=== PATIENT | male | born 1955 | race Caucasian/White ===

== ENCOUNTER 2023-02-21 12:00 | Inpatient (IN) | payer SELFPAY ==
[2023-02-21 12:41] LABS: #Eosinphils 0.1 thou/uL (0.0-0.7); #Monocytes 0.7 thou/uL (0.11-0.59); #Neutrophils 7.4 thou/uL (1.40-6.50); %Basophils 0.4 % (0.0-1.0); %Eosinophils 0.5 % (0.0-10.0); %Lymphocytes 16.5 % (21.0-51.0); %Monocytes 7.5 % (0.0-10.0); %Neutrophils 74.7 % (42.0-75.0); Hematocrit 46.4 % (42.0-52.0); Hemoglobin 14.8 g/dL (14.0-18.0); Mean Corpuscular HGB CONC 31.9 g/dL (32.0-36.0); Mean Corpuscular Hemoglobin 28.1 pg (27.0-31.0); Mean Platelet Volume 13.1 fL (7.4-10.4); Platelet Count 131 10x3/uL (130-400); RBC Distribution Width 15.9 % (11.5-14.5); Red Blood Cell (RBC) Count 5.27 mill/uL (4.70-6.10); White Blood Cell (WBC) Count 9.9 10x3/uL (4.8-10.8)
[2023-02-21 12:57] LABS: INR-International Normal Ratio 1.9; PTT 30.4 sec (22.9-36.1)
[2023-02-21 13:09] LABS: ALT (SGPT) 32 U/L (8-55); AST (SGOT) 38 U/L (5-34); Albumin 3.5 g/dL (3.4-4.8); Alkaline Phosphatase 66 U/L (40-110); Anion Gap 19 mmol/L (10-20); BUN (Urea Nitrogen) 37 mg/dL (8.4-25.7); Bilirubin, Total 2.2 mg/dL (0.2-1.2); Calc. Creatinine Clearance 0 mL/min (70-130); Carbon Dioxide 15 mmol/L (23-31); Chloride 104 mmol/L (98-107); Estimated GFR 34; Globulin 3.5 g/dL (2.4-3.5); Glucose 96 mg/dL (80-115); Sodium 134 mmol/L (136-145)
[2023-02-21 13:12] LABS: Troponin I 0.127 ng/mL (< 0.028)
[2023-02-21 13:21] LABS: SARS-CoV-2 NAA Rapid Test Not Detected (NotDetected)
[2023-02-21] MEDS ORDERED: Aspirin Chewable 81 MG TAB ONE (13:25)
[2023-02-21] MEDS ORDERED: dilTIAZem 25 MG/5 ML VIAL ONE ×2 (13:39→14:30)
[2023-02-21] MEDS ORDERED: Enoxaparin 30 MG (0.3 mL) SYRINGE ONE (13:39)
[2023-02-21] MEDS ORDERED: Enoxaparin 100 MG (1 mL) SYRINGE ONE (13:39)
[2023-02-21] MEDS ORDERED: Aspirin 325 MG TAB ONE (13:49)
[2023-02-21] MEDS ORDERED: Acetaminophen 325 MG TAB PO PRN (14:29)
[2023-02-21] MEDS ORDERED: Furosemide 40 MG (4 mL) VIAL ONE (14:29)
[2023-02-21] MEDS ORDERED: dilTIAZem 125 MG in Sodium Chloride 0.9% 100 ML IVPB SCH (14:30)
[2023-02-21 16:09] VITALS: BMI 37.3
[2023-02-21] MEDS ORDERED: FLU VACC QS2023(65UP)/MF59C/PF 60 MCG/0.5 ML SYRINGE IM ONE (16:45)
[2023-02-21 17:14] LABS: Lactic Acid 2.5 mmol/L (0.5-2.2)
[2023-02-21 17:24] LABS: Troponin I 0.097 ng/mL (< 0.028)
[2023-02-21 17:43] LABS: Free T4 (Free Thyroxine) 1.09 ng/dL (0.70-1.48)
[2023-02-21 18:43] LABS: Bacteria/HPF None Seen HPF (None Seen); Bilirubin Negative (Negative); Blood, Urine Negative (Negative); Clarity Clear (Clear); Glucose, Urine (Dipstick) Normal (Negative); Ketone, Urine Negative (Negative); Leukocyte 75 Leu/uL (Negative); Nitrite Negative (Negative); Protein, Urine (Dipstick) 20 mg/dL (Neg-Trace); RBC/HPF 0-3 HPF (0-3); Specific Gravity, Urine 1.017 (1.002-1.036); Squamous Epithelial None Seen HPF (0-3); Urobilinogen Normal mg/dL (Less than 2)
[2023-02-21 20:29] LABS: Troponin I 0.116 ng/mL (< 0.028)
[2023-02-21] MEDS: Enoxaparin 120 MG/0.8 ML SYRINGE SC SCH (21:18)
[2023-02-22] MEDS: Melatonin 3 MG TAB PO PRN (02:00)
[2023-02-22 04:43] LABS: #Basophils 0.1 thou/uL (0.0-0.2); #Eosinphils 0.1 thou/uL (0.0-0.7); #Monocytes 0.9 thou/uL (0.11-0.59); #Neutrophils 7.1 thou/uL (1.40-6.50); %Basophils 0.5 % (0.0-1.0); %Eosinophils 1.2 % (0.0-10.0); %Lymphocytes 18.9 % (21.0-51.0); %Neutrophils 69.7 % (42.0-75.0); Hematocrit 43.1 % (42.0-52.0); Hemoglobin 13.7 g/dL (14.0-18.0); Mean Corpuscular HGB CONC 31.8 g/dL (32.0-36.0); Mean Corpuscular Hemoglobin 27.3 pg (27.0-31.0); Mean Platelet Volume 12.9 fL (7.4-10.4); Platelet Count 152 10x3/uL (130-400); RBC Distribution Width 15.8 % (11.5-14.5); Red Blood Cell (RBC) Count 5.01 mill/uL (4.70-6.10); White Blood Cell (WBC) Count 10.2 10x3/uL (4.8-10.8)
[2023-02-22 05:09] LABS: ALT (SGPT) 34 U/L (8-55); AST (SGOT) 43 U/L (5-34); Albumin 3.3 g/dL (3.4-4.8); Alkaline Phosphatase 61 U/L (40-110); Anion Gap 17 mmol/L (10-20); BUN (Urea Nitrogen) 40 mg/dL (8.4-25.7); Bilirubin, Total 2.1 mg/dL (0.2-1.2); Calc. Creatinine Clearance 57 mL/min (70-130); Calcium 8.7 mg/dL (7.8-10.44); Carbon Dioxide 20 mmol/L (23-31); Cardiac Risk 4.5 (Less than 4.5); Chloride 102 mmol/L (98-107); Cholesterol 94 mg/dl (< 200 Desired); Estimated GFR 32; Globulin 3.2 g/dL (2.4-3.5); Glucose 91 mg/dL (80-115); HDL Cholesterol 21 mg/dL (>60 Neg Risk); LDL Cholesterol, Calculated 57 mg/dL; Potassium 3.8 mmol/L (3.5-5.1); Protein, Total 6.5 g/dL (5.8-8.1); Sodium 135 mmol/L (136-145); Triglycerides 79 mg/dL (Less than 150)
[2023-02-22] MEDS ORDERED: Furosemide 40 MG (4 mL) VIAL SLOW IVP SCH ×4 (09:00→21:00)
[2023-02-22] MEDS: Enoxaparin 120 MG/0.8 ML SYRINGE SC SCH (10:08)
[2023-02-22 10:29] LABS: HBCM Index 0.09 S/CO (0-0.79); HBSAg Index 0.65 S/CO (0-0.99); Hep A IgM AB Non-Reactive S/CO (NonReactive); Hep A IgM S/CO 0.17 S/CO (0-0.79); Hep B Surf Ag Non-Reactive S/CO (NonReactive); Hep C IgG Ab Non-Reactive S/CO (NonReactive); Hep C Index 0.09 S/CO (0-0.79); Hepatitis B Core IgM Abs Non-Reactive S/CO (NonReactive)
[2023-02-22] MEDS: DOBUTamine 500 mg/250 ml 500 MG in Premix 1 BAG IVPB SCH (13:25)
[2023-02-22] MEDS: Benzonatate 100 MG CAP PO PRN (23:40)
[2023-02-23 04:13] LABS: #Eosinphils 0.1 thou/uL (0.0-0.7); #Monocytes 0.7 thou/uL (0.11-0.59); %Basophils 0.5 % (0.0-1.0); %Eosinophils 1.5 % (0.0-10.0); %Lymphocytes 20.1 % (21.0-51.0); %Monocytes 7.9 % (0.0-10.0); %Neutrophils 69.3 % (42.0-75.0); Hematocrit 40.8 % (42.0-52.0); Hemoglobin 12.9 g/dL (14.0-18.0); Mean Corpuscular HGB CONC 31.6 g/dL (32.0-36.0); Mean Corpuscular Hemoglobin 27.6 pg (27.0-31.0); Mean Corpuscular Volume 87.4 fl (78.0-98.0); Mean Platelet Volume 13.4 fL (7.4-10.4); Platelet Count 131 10x3/uL (130-400); RBC Distribution Width 15.8 % (11.5-14.5); Red Blood Cell (RBC) Count 4.67 mill/uL (4.70-6.10); White Blood Cell (WBC) Count 8.7 10x3/uL (4.8-10.8)
[2023-02-23 04:37] LABS: ALT (SGPT) 30 U/L (8-55); AST (SGOT) 34 U/L (5-34); Albumin 3.2 g/dL (3.4-4.8); Alkaline Phosphatase 54 U/L (40-110); Anion Gap 17 mmol/L (10-20); BUN (Urea Nitrogen) 43 mg/dL (8.4-25.7); Bilirubin, Total 1.8 mg/dL (0.2-1.2); Calc. Creatinine Clearance 54 mL/min (70-130); Calcium 8.6 mg/dL (7.8-10.44); Carbon Dioxide 21 mmol/L (23-31); Chloride 100 mmol/L (98-107); Estimated GFR 30; Glucose 101 mg/dL (80-115); Potassium 3.6 mmol/L (3.5-5.1); Protein, Total 6.2 g/dL (5.8-8.1); Sodium 134 mmol/L (136-145)
[2023-02-23 04:57] LABS: Thyroid Stimulating Hormone 0.8813 uIU/mL (0.35-4.94)
[2023-02-23] MEDS: Furosemide 100 MG (10 mL) VIAL SLOW IVP SCH ×2 (08:38→22:08)
[2023-02-23] MEDS: hydrALAZINE 10 MG TAB PO SCH ×3 (08:39→21:42)
[2023-02-23] MEDS ORDERED: Enoxaparin 120 MG/0.8 ML SYRINGE SC SCH (09:00)
[2023-02-23 15:08] LABS: Amphetamine Not Detected (NotDetected); Barbiturates Screen Not Detected (NotDetected); Benzodiazepine Screen Not Detected (NotDetected); Cocaine Metabolite Screen Not Detected (NotDetected); Methadone Not Detected (NotDetected); Methamphetamine Not Detected (NotDetected); Opiate Screen Not Detected (NotDetected); Oxycodone Screen Not Detected (NotDetected); Phencyclidine (PCP) Not Detected (NotDetected); THC/Cannabinoid Screen Not Detected (NotDetected); Tricyclic Screen Not Detected (NotDetected)
[2023-02-23 15:32] LABS: Hemoglobin A1c 6.7 % (4.0-6.0)
[2023-02-23] MEDS: DOBUTamine 500 mg/250 ml 500 MG in Premix 1 BAG IVPB SCH (16:53)
[2023-02-23] MEDS: Enoxaparin 120 MG/0.8 ML SYRINGE SC SCH (21:17)
[2023-02-23] MEDS: Melatonin 3 MG TAB PO PRN (21:25)
[2023-02-23] MEDS: Benzonatate 100 MG CAP PO PRN (21:25)
[2023-02-24] MEDS ORDERED: Guaifenesin DM 100-10/5 ML UDCUP PO PRN (00:53)
[2023-02-24 04:51] LABS: Anion Gap 17 mmol/L (10-20); BUN (Urea Nitrogen) 39 mg/dL (8.4-25.7); Calc. Creatinine Clearance 58 mL/min (70-130); Calcium 8.5 mg/dL (7.8-10.44); Carbon Dioxide 23 mmol/L (23-31); Chloride 97 mmol/L (98-107); Estimated GFR 33; Glucose 98 mg/dL (80-115); Magnesium 1.9 mg/dL (1.6-2.6); Potassium 2.9 mmol/L (3.5-5.1); Sodium 134 mmol/L (136-145)
[2023-02-24] MEDS ORDERED: Spironolactone 25 MG TAB PO SCH (09:00)
[2023-02-24] MEDS: hydrALAZINE 10 MG TAB PO SCH ×4 (09:05→20:48)
[2023-02-24] MEDS: Enoxaparin 120 MG/0.8 ML SYRINGE SC SCH ×2 (09:05→17:44)
[2023-02-24] MEDS: Furosemide 100 MG (10 mL) VIAL SLOW IVP SCH ×2 (09:06→20:49)
[2023-02-24] MEDS ORDERED: Digoxin 0.5 MG/2 ML AMP SLOW IVP SCH ×3 (10:30→15:00)
[2023-02-24 12:44] LABS: Hematocrit 38.8 % (42.0-52.0); Hemoglobin 12.6 g/dL (14.0-18.0); Mean Corpuscular HGB CONC 32.5 g/dL (32.0-36.0); Mean Corpuscular Hemoglobin 27.7 pg (27.0-31.0); Mean Corpuscular Volume 85.3 fl (78.0-98.0); Mean Platelet Volume 12.8 fL (7.4-10.4); Platelet Count 140 10x3/uL (130-400); RBC Distribution Width 15.5 % (11.5-14.5); Red Blood Cell (RBC) Count 4.55 mill/uL (4.70-6.10); White Blood Cell (WBC) Count 7.9 10x3/uL (4.8-10.8)
[2023-02-24] MEDS ORDERED: Magnesium 2 GM/50 ML(in water) 2 GM in Premix 1 BAG IVPB SCH (14:00)
[2023-02-24] MEDS ORDERED: Electrolyte Replacement Protocol 1 EACH FS SCH (14:00)
[2023-02-24] MEDS ORDERED: Potassium Chloride 20 MEQ TAB PO SCH ×2 (14:00→20:00)
[2023-02-24 15:55] VITALS: TEMP 97.5
[2023-02-24 17:40] LABS: Potassium 3.1 mmol/L (3.5-5.1)
[2023-02-24 20:48] VITALS: BP 127/72
[2023-02-25] MEDS ORDERED: Spironolactone 25 MG TAB PO SCH (09:00)
[2023-02-25] MEDS ORDERED: Digoxin 0.125 MG TAB PO SCH (09:00)
== END 2023-02-24 21:15 | disposition short-term general hospital (02) | DRG 280 ==
LOC: ERS 12:00 → 2NO 13:43
PROVIDERS: ADMIT Internal Medicine; ATTEND Family Medicine
DX: I13.0 Hypertensive heart and chronic kidney disease with heart failure and stage 1 through stage 4 chronic kidney disease, or unspecified chronic kidney disease (principal); I50.41 Acute combined systolic (congestive) and diastolic (congestive) heart failure; I21.A1 Myocardial infarction type 2; E87.20 Acidosis, unspecified; N17.9 Acute kidney failure, unspecified; I48.92 Unspecified atrial flutter; I48.19 Other persistent atrial fibrillation; I42.9 Cardiomyopathy, unspecified; I35.0 Nonrheumatic aortic (valve) stenosis; E87.6 Hypokalemia; G47.33 Obstructive sleep apnea (adult) (pediatric); R63.4 Abnormal weight loss; R79.89 Other specified abnormal findings of blood chemistry; E03.8 Other specified hypothyroidism; E11.22 Type 2 diabetes mellitus with diabetic chronic kidney disease; N18.30 Chronic kidney disease, stage 3 unspecified; Z11.52 Encounter for screening for COVID-19; Z87.891 Personal history of nicotine dependence
CPT/HCPCS: 36415; 71045; 76700; 76705; 80048; 80053; 80061; 80074; 80076; 80306; 81001; 83036; 83605; 83735; 83880; 84439; 84443; 84481; 84484; 85025; 85027; 85610; 85730; 87040; 90471; 90694; 93005; 93306; 96372; 96374; 96375; G0008; J1160; J1250; J1650; J1940; J3475